=== PATIENT | female | born 1990 | race Hispanic/Latino ===

== ENCOUNTER 2024-04-09 20:58 | Emergency (ER) | payer SELFPAY ==
[2024-04-09 21:07] VITALS: BP 145/85
[2024-04-09 21:28] LABS: % Basophils 0.3 % (0-2); % Immature Granulocytes 0.5 % (0-0.5); % Lymphocytes 18.5 % (20.5-51.1); % Monocytes 7.5 % (1.7-9.3); % Neutrophils 72.2 % (42.2-75.2); Absolute Eosinophils 0.1 10^3/uL (0-0.7); Absolute Immature Granulocytes 0.1 10^3/uL (0-0.05); Absolute Lymphocytes 1.9 10^3/uL (1.2-3.4); Absolute Monocytes 0.8 10^3/uL (0.1-0.6); Absolute Neutrophils 7.3 10^3/uL (1.4-6.5); Hematocrit 38.6 % (37.0-47.0); Hemoglobin 12.7 g/dL (12.0-16.0); Mean Corp Hgb Conc. 32.9 g/dL (33.0-37.0); Mean Corpuscular Hgb 29.4 pg (27.0-31.0); Mean Corpuscular Volume 89.4 fL (81.0-99.0); Mean Platelet Volume 12.1 fL (7.4-10.4); Nucleated Red Blood Cells % 0 %; Platelet Count 265 10^3/uL (130-400); Red Blood Cell Count 4.32 10^6/uL (4.20-5.40); Red Cell Dist. Width 14.6 % (11.5-14.5); White Blood Cell Count 10.1 10^3/uL (4.8-10.8)
[2024-04-09 21:44] LABS: ALT (SGPT) 20 U/L (0-35); AST (SGOT) 17 U/L (14-36); Albumin 4.9 g/dl (3.5-5.0); Alkaline Phosphatase 80 U/L (38-126); Blood Urea Nitrogen 9 mg/dl (7-17); Calcium 9.6 mg/dl (8.4-10.2); Carbon Dioxide 23 mmol/L (22-30); Chloride 100 mmol/L (98-107); Glucose 110 mg/dl (70-99); Potassium 4.2 mmol/L (3.5-5.1); Sodium 135 mmol/L (135-145); Total Bilirubin 0.6 mg/dl (0.2-1.3); Total Protein 7.8 g/dl (6.3-8.2); eGFR > 60.00
[2024-04-09 23:55] VITALS: BMI 25.7
[2024-04-10 00:03] VITALS: BP 114/80
--- NOTE | 2024-04-10 00:39 | ED.GENMED ---
History of Present Illness
General
Chief Complaint: Problems
Source: patient and family
Exam Limitations: none
Time Seen by Provider: 04/10/24 00:06
Nursing documentation reviewed up to this point in time: agreed with
History of Present Illness
History of Present Illness:
Patient is a 34-year-old female 3 para 0 presents to the ER for evaluation of vaginal bleeding. Patient reports she is approx-6 weeks last menstrual period February 25 and she started spotting around 1 AM last night. She reports she
only notices blood on the toilet paper. She denies any cramping/abdominal pain. She has had 2 prior miscarriages. She is visiting from [place] and did not see DIAMOND POWDER TECHNICIAN yet.
Pt requests that her friend translates for her.
Review of Systems
Review of Systems
Allergies reviewed?: Yes
All Other Systems: ROS reviewed and negative except as documented in HPI and ROS
Constitutional: Reports no symptoms; Denies fever
Respiratory: Reports no symptoms
Cardiac: Reports no symptoms
ABD/GI: Denies abdominal pain
: Reports other (vaginal spotting on toilet paper )
Musculoskeletal: Reports no symptoms; Denies back pain
Skin: Reports no symptoms
Psychiatric: Reports no symptoms
Phy Exam
General Physical Exam
General Presentation: no apparent distress
General age: appears stated age
General Skin: warm and dry
General Habitus: normal
General Mental: alert
General Hydration: appears well hydrated
Gastrointestinal Exam
Gastrointestinal Exam: non tender and soft
Neurological Exam
Neurological Exam: alert and oriented x3
Musculoskeletal Exam
Musculoskeletal Exam: full ROM
Skin Exam
Skin Exam: normal color and warm/dry
Psychiatric Exam
Psychiatric Exam: normal mood/affect
Course
Orders/Labs/Results
Orders:
Orders
04/09/24 21:19
Complete Blood Count/With Diff Urgent
Comprehensive Metabolic Panel Urgent
HCG, Beta Quantitative [Beta HCG Quantitative] Urgent
Is this a screen?: No
04/10/24 00:35
IV Insert/Care/Rem.- Treatment PRN
US 1st Trimester Urgent
Comment:
Reason For Exam: bleeding
04/10/24 00:43
Blood Group&Type Urgent
04/10/24 00:59
ABO2 Routine
BBK Wristband Number:
Associate notified that ABO2 has been ordered: HARDIK
Date: 04/10/24
Time: 00:58
Grain Elevator Superintendent ID: [id number]
Abnormal Lab Results
04/09/24
21:19
MCHC 32.9 L g/dL
(33.0-37.0)
RDW 14.6 H %
(11.5-14.5)
MPV 12.1 H fL
(7.4-10.4)
Abs Immat Gran (auto) 0.1 H 10^3/uL
(0-0.05)
Absolute Neuts (auto) 7.3 H 10^3/uL
(1.4-6.5)
Absolute Monos (auto) 0.8 H 10^3/uL
(0.1-0.6)
Lymphocytes % 18.5 L %
(20.5-51.1)
Glucose 110 H mg/dl
(70-99)
04/09/24 21:19
04/09/24 21:19
Vital Signs
Initial and Last Documented VS:
Initial Vital Signs
Temp Pulse Resp BP Pulse Ox
99.1 F 80 18 145/85 100
04/09/24 21:07 04/09/24 21:07 04/09/24 21:07 04/09/24 21:07 04/09/24 21:07
Last Documented Vital Signs
Temp Pulse Resp BP Pulse Ox
98.3 F 75 14 115/75 100
04/09/24 23:55 04/10/24 02:49 04/10/24 02:49 04/10/24 02:49 04/10/24 02:49
Information
Weeks gestation: Weeks:
Location: Location:
MDM/Problems Addressed
Differential Diagnosis Includes:
Not limited to threat miscarriage
MDM/Problems Addressed:
Patient presented several weeks complaining of vaginal bleeding denies any abdominal pain. Patient reports only spotting when she wipes. Ultrasound shows a single live IUP at 6 weeks 6 days with a heart rate of 123. Pt is visiting
from [place] however has not seen a PATENT CLERK yet but is going back next week. She is in no acute distress blood type is O positive stable for discharge home with outpatient follow-up with her DIAMOND POWDER TECHNICIAN. Friend also at bedside discussed no sexual
intercourse no heavy lifting and to return if any worsening of symptoms.
*Radiology
Radiology exam reviewed: radiology read reviewed (Single live IUP 6 weeks 6 days heart rate 123 small subchorionic hemorrhage)
*Pulse Oximetry
Patient hypoxic: no
*Critical Care Note
Total Time (30-74mins, 75-104mins- exclusive of procedures): Not Applicable
ED Attending Note
-
Portions of this chart may have been created with voice recognition software.� Occasional wrong word or��sound alike� substitutions may have occurred due to the inherent limitations of voice recognition software.
Discharge Plan
Departure
Patient Disposition: Home (Routine Discharge)
Date of Disposition: 04/10/24
Time of Disposition: 02:40
Patient with high blood pressure during this ER visit?: Yes
Condition: Fair
Covid-19: Not Applicable
Discharge Problem:
Threatened miscarriage
Instructions: Threatened Miscarriage (DC)
Referrals:
NONE,* [Family Provider] -
Activity Restrictions/Additional Instructions:
As discussed no heavy lifting no sexual intercourse until cleared by your DIAMOND POWDER TECHNICIAN. When you arrive back to [place] please call to schedule an appointment as soon as possible return if any worsening of symptoms.
Interventions
Interventions:
*Risk Screen - Suicide Last Done: 04/09/24 23:55
*General Assessment Last Done: 04/09/24 21:11
*Neglect/Abuse Screening Last Done: 04/09/24 23:55
ED- Fall Risk Assessment Last Done: 04/09/24 23:55
*ED COVID-19 Vaccine History Last Done: 04/09/24 23:55
*Nursing Disposition Last Done: 04/10/24 02:49
ED-Female Genitourinary Assessment Last Done: 04/09/24 23:55
Discharge Date and Time
Discharge Date/Time: 04/10/24 02:50
Print Language: VIET[place]ESE
--- NOTE | 2024-04-10 02:45 | DOWNTIME ---
There was a [employer]riculum [employer] Instruction Specialist Downtime on 04/10/2024 from 0100 to 04/10/2023 at 0235 . Downtime documentation of patient's care, including medication administrations, has been reconciled in the electronic record per guidelines. Refer to the
patient's paper chart under the miscellaneous tab to see printed paper medication records and downtime forms.
[2024-04-10 02:49] VITALS: BP 115/75
== END 2024-04-10 02:50 | disposition home or self-care (01) ==
LOC: EMR 20:58
PROVIDERS: Student in an Organized Health Care Education/Training Program; EMERGENCY PHYSICIAN Student in an Organized Health Care Education/Training Program
DX: O20.0 Threatened abortion (principal); Z3A.01 Less than 8 weeks gestation of pregnancy; R03.0 Elevated blood-pressure reading, without diagnosis of hypertension; Z86.73 Personal history of transient ischemic attack (TIA), and cerebral infarction without residual deficits; Z88.1 Allergy status to other antibiotic agents
CPT/HCPCS: 99284; 76801; 80053; 84702; 85025; 86900; 86901